=== PATIENT | female | born 1945 | race Asian ===

== ENCOUNTER 2017-08-29 15:30 | Emergency (ER) | payer OTHER ==
--- NOTE | 2017-08-29 15:46 | PDOC ---
Rapid Medical Evaluation Time Seen by Provider: 08/29/17 15:46 Medical Evaluation: 08/29/17 15:50 The patient presents with a chief complaint of: Sent by Dr. Barros [facility]iology to r/ o SVT. HR currently 102, no chest pain. Pt possibly exposed to the flu. HX aneurym coiling, partial thyroidectomy, b/l mastectomy I have performed a brief in-person evaluation of this patient; Pertinent physical exam findings: Tachycardic, regular rhythm, systolic murmur R 2-3rd intercostal space. CTAB I have ordered the following: CBC, CMP, Cardiac profile, TSH, PT/INR, EKG, Chest x-ray, influenza, tylenol The patient will proceed to the ED for further evaluation.
[2017-08-29] MEDS ORDERED: ACETAMINOPHEN 325 MG TABLET (FP) PO ONE (15:56)
[2017-08-29 15:57] VITALS: BP 154/86; TEMP 100.5; BMI 23.0
[2017-08-29] MEDS ORDERED: SODIUM CHLORIDE 1,000 ML IV STA (16:40)
[2017-08-29 17:06] LABS: BASO % 0.4 % (0-2.0); EOS % 0.3 % (0-4.5); HEMATOCRIT 39.6 % (32.4-45.2); HEMOGLOBIN 13.5 GM/dL (10.7-15.3); LYMPH % 18.2 % (8-40); MCHC 34.1 g/dl (32.0-36.0); MEAN CELL VOLUME 96.6 fl (80-96); MONO % 18.1 % (3.8-10.2); PLATELET COUNT 216 K/MM3 (134-434); RDW 13.2 % (11.6-15.6); WHITE BLOOD COUNT 5.2 K/mm3 (4.0-10.0)
[2017-08-29 17:29] VITALS: PULSE 92
[2017-08-29 18:00] LABS: INR 1.06 (0.82-1.09)
--- NOTE | 2017-08-29 18:05 | PDOC ---
History of Present Illness - General History Source: Patient Exam Limitations: No Limitations - History of Present Illness Initial Comments: 08/29/17 18:12 The patient is a 71 year old female with a significant PMH of hypertension, hyperlipidemia, aneurysm coiling, and hyperthyroidism who was sent in by PCP, Dr. Lui, to the emergency department to rule out SVT. The patient states she went to her PCP today for flu-like symptoms. The patient notes she may have been exposed to the flu four days ago. The patient states she had a sore throat three days ago and a mild cough productive of white phlegm with subjective fevers two days ago. The patient reports she took robitussin two days ago and a Tylenol at 10AM this morning. The patient states she had her flu shot this year. The patient denies chest pain, shortness of breath, headache and dizziness. Denies fever, chills, nausea, vomit, diarrhea and constipation. Denies dysuria, frequency, urgency and hematuria. Allergies: Latex, Penicillins Past surgical history: None reported. Social history: No reported alcohol, cigarette or drug use. PCP: Dr. Lui <Lucero Bush - Last Filed: 08/29/17 18:12> <Gianluca Jj - Last Filed: 08/29/17 19:12> - General Chief Complaint: Cold Symptoms Stated Complaint: ABNORMAL EKG Time Seen by Provider: 08/29/17 15:46 Past History <Lucero Bush - Last Filed: 08/29/17 18:12> - Past Medical History Cancer: Yes (breast ca (mastectomy 1995)) COPD: No HTN: Yes Seizures: Yes (hyper (S/P thyroidectomy)) Other medical history: Brain anyrism coiling - Immunization History Immunization Up to Date: Yes - Suicide/Smoking/Psychosocial Hx Smoking History: Never smoked Information on smoking cessation initiated: No Hx Alcohol Use: No Drug/Substance Use Hx: No Substance Use Type: None <Gianluca Jj - Last Filed: 08/29/17 19:12> - Past Medical History Allergies/Adverse Reactions: Allergies Allergy/AdvReac Type Severity Reaction Status Date / Time latex Allergy Verified 08/29/17 15:47 Penicillins Allergy Verified 08/29/17 15:47 Home Medications: Ambulatory Orders Apremilast [Otezla] 30 mg PO DAILY 08/29/17 Atorvastatin Ca [Lipitor] 40 mg PO HS 08/29/17 Azithromycin 250 mg PO DAILY #4 tablet 08/29/17 Losartan Potassium 100 mg PO DAILY 08/29/17 Methimazole 0 mg PO DAILY 08/29/17 Metoprolol Succinate [Toprol Xl] 25 mg PO DAILY 08/29/17 Oseltamivir Phosphate [Tamiflu] 75 mg PO BID #10 capsule 08/29/17 Review of Systems - Review of Systems Able to Perform ROS?: Yes Comments:: 08/29/17 18:14 GENERAL/CONSTITUTIONAL: No fever or chills. No weakness. HEAD, EYES, EARS, NOSE AND THROAT: No change in vision. No ear pain or discharge. No sore throat. CARDIOVASCULAR: No chest pain or shortness of breath. RESPIRATORY: (+) Sore throat. (+) Mild cough.No wheezing or hemoptysis. GASTROINTESTINAL: No nausea, vomiting, diarrhea or constipation. GENITOURINARY: No dysuria, frequency, or change in urination. MUSCULOSKELETAL: No joint or muscle swelling or pain. No neck or back pain. SKIN: No rash NEUROLOGIC: No headache, vertigo, loss of consciousness, or change in strength/ sensation. ENDOCRINE: No increased thirst. No abnormal weight change. HEMATOLOGIC/LYMPHATIC: No anemia, easy bleeding, or history of blood clots. ALLERGIC/IMMUNOLOGIC: No hives or skin allergy. <Lucero Bush - Last Filed: 08/29/17 18:12> *Physical Exam - Vital Signs Last Vital Signs Temp Pulse Resp BP Pulse Ox 100.5 F H 92 H 18 154/86 93 L 08/29/17 15:47 08/29/17 17:27 08/29/17 17:27 08/29/17 15:47 08/29/17 17:27 - Physical Exam Comments: 08/29/17 18:15 GENERAL: Awake, alert, and fully oriented, in no acute distress HEAD: No signs of trauma EYES: PERRLA, EOMI, sclera anicteric, conjunctiva clear ENT: Auricles normal inspection, hearing grossly normal, nares patent, oropharynx clear without exudates. Moist mucosa NECK: Normal ROM, supple, no lymphadenopathy, JVD, or masses LUNGS: Breath sounds equal, clear to auscultation bilaterally. No wheezes, and no crackles HEART: (+) Systolic murmur. Regular rate and rhythm, normal S1 and S2, rubs or gallops ABDOMEN: Soft, nontender, normoactive bowel sounds. No guarding, no rebound. No masses EXTREMITIES: Normal range of motion, no edema. No clubbing or cyanosis. No cords, erythema, or tenderness NEUROLOGICAL: Cranial nerves II through XII grossly intact. Normal speech, normal gait SKIN: Warm, Dry, normal turgor, no rashes or lesions noted. <Lucero Bush - Last Filed: 08/29/17 18:12> - Vital Signs Last Vital Signs Temp Pulse Resp BP Pulse Ox 100.5 F H 92 H 18 154/86 93 L 08/29/17 15:47 08/29/17 17:27 08/29/17 17:27 08/29/17 15:47 08/29/17 17:27 <Gianluca Jj - Last Filed: 08/29/17 19:12> Heart Score/ECG Review #1 ECG reviewed & interpreted by me at: 18:00 08/29/17 18:18 NSR 97, LBBB, no std/aaron, QTC 482 msec <Gianluca Jj - Last Filed: 08/29/17 19:12> ED Treatment Course - LABORATORY CBC & Chemistry Diagram: 08/29/17 16:45 - ADDITIONAL ORDERS Additional order review: Laboratory Results 08/29/17 08/29/17 16:53 16:45 Lactic Acid 1.7 Creatine Kinase 102 Troponin I 0.02 08/29/17 16:45 Influenza Types A,B Antigen (STEPHAN) - Final Nasopharyngeal Swab - Final 08/29/17 16:45 RBC 4.10 MCV 96.6 H MCHC 34.1 RDW 13.2 MPV 8.0 Neutrophils % 63.0 Lymphocytes % 18.2 D Monocytes % 18.1 H D Eosinophils % 0.3 Basophils % 0.4 - Medications Given in the ED: ED Medications Discontinued Medications Generic Name Dose Route Start Last Admin Trade Name Freq PRN Reason Stop Dose Admin Acetaminophen 650 mg 08/29/17 15:56 08/29/17 16:59 Tylenol - PO 08/29/17 15:57 650 mg ONCE ONE Administration Sodium Chloride 1,000 mls @ 1,000 mls/hr 08/29/17 16:40 08/29/17 16:59 Normal Saline - IV 08/29/17 17:39 1,000 mls/hr ASDIR STA Administration <Jada Bushsy - Last Filed: 08/29/17 18:12> - LABORATORY CBC & Chemistry Diagram: 08/29/17 16:45 08/29/17 18:00 - ADDITIONAL ORDERS Additional order review: Laboratory Results 08/29/17 16:53 Lactic Acid 1.7 08/29/17 16:45 RBC 4.10 MCV 96.6 H MCHC 34.1 RDW 13.2 MPV 8.0 Neutrophils % 63.0 Lymphocytes % 18.2 D Monocytes % 18.1 H D Eosinophils % 0.3 Basophils % 0.4 - Medications Given in the ED: ED Medications Discontinued Medications Generic Name Dose Route Start Last Admin Trade Name Freq PRN Reason Stop Dose Admin Acetaminophen 650 mg 08/29/17 15:56 08/29/17 16:59 Tylenol - PO 08/29/17 15:57 650 mg ONCE ONE Administration Sodium Chloride 1,000 mls @ 1,000 mls/hr 08/29/17 16:40 08/29/17 16:59 Normal Saline - IV 08/29/17 17:39 1,000 mls/hr ASDIR STA Administration <Gianluca Jj - Last Filed: 08/29/17 19:12> Medical Decision Making - Medical Decision Making 08/29/17 18:18 A portion of this note was documented by scribe services under my direction. I have reviewed the details of the note, within reason, and agree with the documentation with the following case summary and management plan written by me. Patient treated in the ED. Nursing notes are reviewed and incorporated into the medical decision-making. Vital signs reviewed. Peripheral IV access obtained by the nurse, laboratory studies are drawn and sent, reviewed and interpreted by myself. Vital Signs Temp Pulse Resp BP Pulse Ox 100.5 F H 92 H 18 154/86 93 L 08/29/17 15:47 08/29/17 17:27 08/29/17 17:27 08/29/17 15:47 08/29/17 17:27 71-year-old female with history of hyperthyroidism on methimazole, brain aneurysm status post coiling presents to the emergency department for 5 days of upper respiratory infection symptoms and body aches. The patient has positive sick contacts with someone from [place] approximate 5 days ago with URI symptoms. States that she's been feeling generally unwell. The patient had visited her benzene operator Dr. Lui and heard a murmur and obtain EKG and was concerned for SVT. The patient was then sent to the ER. The patient here appears to have flulike symptoms which I suspect is concerning to her tachycardia and general malaise. Patient is complaining about a clearish productive cough. Patient's EKG from her benzene operator office and repeat EKG here demonstrates normal sinus rhythm heart rate 97, left axis deviation with left bundle branch block. There is no prior EKGs to compare to. The patient's skip pitman is Dr. Gabe Barros. Patient's family was concerned about this EKG finding so requested that I contact Dr. Barrso. Case discussed with Dr. Waller who is aware. At this time, I suspect this is more likely infectious and less likely to be cardiac. We'll obtain a chest x-ray, labs to rule out pneumonia. Patient did swab positive for influenza. However, patient is outside the window for Tamiflu. We'll also test for thyroid storm but low suspicion. 08/29/17 19:05 CBC, BMP 08/29/17 16:45 08/29/17 18:00 CMP Sodium 138 mmol/L (136-145) 08/29/17 18:00 Potassium 3.4 mmol/L (3.5-5.1) L 08/29/17 18:00 Chloride 104 mmol/L (98-107) 08/29/17 18:00 Carbon Dioxide 23 mmol/L (21-32) 08/29/17 18:00 Anion Gap 11 (8-16) 08/29/17 18:00 BUN 12 mg/dL (7-18) 08/29/17 18:00 Creatinine 0.6 mg/dL (0.55-1.02) 08/29/17 18:00 Creat Clearance w eGFR > 60 (>60) 08/29/17 18:00 Random Glucose 131 mg/dL (74-106) H 08/29/17 18:00 Lactic Acid 1.7 mmol/L (0.0-2.0) 08/29/17 16:53 Calcium 7.9 mg/dL (8.5-10.1) L 08/29/17 18:00 Phosphorus 2.4 mg/dL (2.5-4.9) L 08/29/17 18:00 Magnesium 2.1 mg/dL (1.8-2.4) 08/29/17 18:00 Total Bilirubin 0.5 mg/dL (0.2-1.0) 08/29/17 18:00 AST 23 U/L (15-37) 08/29/17 18:00 ALT 36 U/L (12-78) 08/29/17 18:00 Alkaline Phosphatase 113 U/L (45-117) 08/29/17 18:00 Creatine Kinase 102 IU/L (26-192) 08/29/17:45 Troponin I 0.02 ng/ml (0.00-0.05) 08/29/17 16:45 Total Protein 7.1 g/dl (6.4-8.2) 08/29/17 18:00 Albumin 3.7 g/dl (3.4-5.0) 08/29/17 18:00 Chest xray reviewed. No acute findings. Influenza POSITIVE. The patient is well-appearing and breathing comfortably. Case discussed with Dr. Lui. States that the last thyroid panel demonstrated hypothyroidism. Though the patient is outside the window, after lengthly discussion with the patient and family (who are RNs). The patient has had prior history of multiple illnesses, prior cancers, and family is concern regarding the influenza. I had explained that the patient may be developing bronchitis and that she may benefit from azithromycin, which I will prescribe. I had explained that the patient is technically outside the window the tamiflu, but according to the family, the patient has had prior influenzas that led to bad outcomes and have requested for the tamiflu. Given the circumstances, and pt family aware of the influenza indications, will prescribe tamiflu and azithromycin. Pt requesting to be discharged. I have very low suspicion for thyroid storm. Will draw TSH, T3, T4 and have it followed up as an outpatient. I discussed the physical exam findings, ancillary test results and final diagnoses with the patient. I answered all of the patient's questions. The patient was satisfied with the care received and felt comfortable with the discharge plan and treatment plan. The patient will call their primary care physician within 24 hours to arrange follow-up and will return to the Emergency Department with any new, persistant or worsening symptoms. <Gianluca Jj - Last Filed: 08/29/17 19:12> *DC/Admit/Observation/Transfer - Attestations Scribe Attestion: 08/29/17 18:15 Documentation prepared by Lucero Bush, acting as general medical practitioner for Gianluca Jj MD. <Lucero Bush - Last Filed: 08/29/17 18:12> - Discharge Dispostion Admit: No <Gianluca Jj - Last Filed: 08/29/17 19:12> Diagnosis at time of Disposition: Influenza, Bronchitis - Discharge Dispostion Disposition: HOME Condition at time of disposition: Improved - Prescriptions Prescriptions: Azithromycin 250 mg PO DAILY #4 tablet Oseltamivir Phosphate [Tamiflu] 75 mg PO BID #10 capsule - Referrals Referrals: Dev Lui MD [Primary Care Provider] - - Patient Instructions Printed Discharge Instructions: DI for Influenza -- Adult, DI for Acute Bronchitis Additional Instructions: You swabbed positive for the flu. Take the azithromycin and tamiflu as prescribed. Follow up with your doctor. - Post Discharge Activity
[2017-08-29 18:32] LABS: ALBUMIN 3.7 g/dl (3.4-5.0); ALK PHOS 113 U/L (45-117); ANION GAP 11 (8-16); BILIRUBIN,TOTAL 0.5 mg/dL (0.2-1.0); BLOOD UREA NITROGEN 12 mg/dL (7-18); CALCIUM 7.9 mg/dL (8.5-10.1); CHLORIDE 104 mmol/L (98-107); CO2 23 mmol/L (21-32); CREATININE 0.6 mg/dL (0.55-1.02); GLUCOSE,RANDOM 131 mg/dL (74-106); MAGNESIUM 2.1 mg/dL (1.8-2.4); PHOSPHOROUS 2.4 mg/dL (2.5-4.9); POTASSIUM 3.4 mmol/L (3.5-5.1); SGOT/AST 23 U/L (15-37); SGPT/ALT 36 U/L (12-78); SODIUM 138 mmol/L (136-145); TOT PROT 7.1 g/dl (6.4-8.2)
[2017-08-29] MEDS ORDERED: OSELTAMIVIR PHOSPHATE 75 MG CAPSULE PO ONE (19:10)
[2017-08-29] MEDS ORDERED: AZITHROMYCIN 500 MG TABLET PO ONE (19:10)
[2017-08-29] MEDS ORDERED: AZITHROMYCIN 500 MG TABLET ONE (19:32)
[2017-08-29] MEDS ORDERED: OSELTAMIVIR PHOSPHATE 75 MG CAPSULE ONE ×2 (19:32→19:38)
[2017-08-29 20:28] LABS: ALBUMIN 3.5 g/dl (3.4-5.0); ANION GAP 11 (8-16); BILIRUBIN,TOTAL 0.5 mg/dL (0.2-1.0); BLOOD UREA NITROGEN 10 mg/dL (7-18); CALCIUM 7.3 mg/dL (8.5-10.1); CHLORIDE 108 mmol/L (98-107); CO2 23 mmol/L (21-32); CREATININE 0.5 mg/dL (0.55-1.02); GLUCOSE,RANDOM 89 mg/dL (74-106); POTASSIUM 3.7 mmol/L (3.5-5.1); SGOT/AST 26 U/L (15-37); SGPT/ALT 35 U/L (12-78); SODIUM 142 mmol/L (136-145); TOT PROT 6.7 g/dl (6.4-8.2)
[2017-08-29 20:37] LABS: ALK PHOS 100 U/L (45-117)
--- NOTE | 2017-08-30 09:47 | EKG ---
Test Reason : Blood Pressure : / mmHG Vent. Rate : 113 BPM Atrial Rate : 113 BPM P-R Int : 144 ms QRS Dur : 126 ms QT Int : 352 ms P-R-T Axes : 070 -28 120 degrees QTc Int : 482 ms SINUS TACHYCARDIA POSSIBLE LEFT ATRIAL ENLARGEMENT LEFT BUNDLE BRANCH BLOCK ABNORMAL ECG WHEN COMPARED WITH ECG OF 03-NOV-2008 07:58, LEFT BUNDLE BRANCH BLOCK IS NOW PRESENT Confirmed by MAKAYLA CALZADA MD ([id number]) on 08/30/2017 9:47:06 AM Referred By: Confirmed By:MAKAYLA CALZADA MD
== END 2017-08-29 19:41 | disposition home or self-care (01) ==
LOC: JER 15:30
PROC: 3E0337Z Introduction of Electrolytic and Water Balance Substance into Peripheral Vein, Percutaneous Approach (ICD-10-PCS; principal; 2017-08-29)
DX: J09.X2 Influenza due to identified novel influenza A virus with other respiratory manifestations (principal); J40 Bronchitis, not specified as acute or chronic; I10 Essential (primary) hypertension; E78.00 Pure hypercholesterolemia, unspecified
CPT/HCPCS: 36415; 71045-TC; 80053; 82550; 83605; 83735; 84100; 84439; 84443; 84481; 84484; 85025; 85610; 87804; 93005; 93010; 99281-25